=== PATIENT | female | born 1990 | race Caucasian/White ===

== ENCOUNTER 2020-11-25 18:17 | Emergency (ER) | payer SELFPAY ==
[~2020-11-25] VITALS: Ht 154.9 cm; Wt 55.0 kg
[2020-11-25] MEDS ORDERED: IBUPROFEN 600MG TABLET PO STA (18:51)
[2020-11-25] MEDS ORDERED: ACETAMINOPHEN 325MG TABLET PO STA (18:51)
[2020-11-25] MEDS ORDERED: SODIUM CHLORIDE 0.9% 1,000 ML IV ONE (19:00)
[2020-11-25 19:22] LABS: BASOPHILS % 0.4 % (0.0-2.0); EOSINOPHILS % 0.8 % (0.0-5.0); HEMATOCRIT. 34.7 % (36.0-48.0); HEMOGLOBIN. 11.6 g/dL (12.0-16.0); LYMPHOCYTES % 19.4 % (20.0-50.0); MEAN CORPUSCULAR HEMOGLOBIN 27.8 pg (28.0-32.0); MEAN CORPUSCULAR VOLUME 82.9 fL (81.0-99.0); MEAN PLATELET VOLUME 10.1 fl (7.4-10.4); MONOCYTES % 6.8 % (2.0-8.0); NEUTROPHILS % 72.6 % (40.0-76.0); PLATELET 174 x1000/uL (130-400); RED BLOOD CELL COUNT 4.18 mill/uL (4.2-5.4); RED CELL DISTRIBUTION WIDTH 15.6 % (11.6-14.6)
[2020-11-25 19:23] LABS: CHLORIDE 106 mEq/L (98-107)
[2020-11-25 19:31] LABS: HCG SCREEN NEGATIVE
[2020-11-25] MEDS ORDERED: POTASSIUM CHLORIDE 20MEQ TABLET SR PO ONE (20:00)
[2020-11-25 21:20] VITALS: BP 100/55
== END 2020-11-26 05:03 | disposition home or self-care (01) ==
LOC: ER 18:17
DX: U07.1 COVID-19 (principal); J06.9 Acute upper respiratory infection, unspecified; Z98.51 Tubal ligation status
CPT/HCPCS: 36415; 71045; 80053; 84703; 85025; 93005; 99285; C9803; J7030; U0003